=== PATIENT | male | born 1975 | race Two or more races ===

== ENCOUNTER 2024-07-05 01:24 | Emergency (ER) | payer OTHER ==
[~2024-07-05] VITALS: Ht 167.6 cm; Wt 70.0 kg
[2024-07-05] MEDS: NALOXONE HCL 1MG/ML 2ML SYRINGE ONE ×2 (01:37→01:43)
[2024-07-05] MEDS: NALOXONE HCL 1MG/ML 2ML SYRINGE IV ONE ×4 (01:44→01:55)
[2024-07-05 02:14] VITALS: PULSE 83; RESP 11; O2SAT 100
[2024-07-05 07:55] VITALS: PULSE 89; RESP 12; TEMP 98.2; O2SAT 99
[2024-07-05 09:17] VITALS: BP 120/78; PULSE 76; RESP 15; O2SAT 98
== END 2024-07-05 09:25 | disposition home or self-care (01) ==
LOC: EDBD 01:24 → ER 01:24
DX: T50.7X1A Poisoning by analeptics and opioid receptor antagonists, accidental (unintentional), initial encounter (principal); R41.82 Altered mental status, unspecified; F17.200 Nicotine dependence, unspecified, uncomplicated; Y92.9 Unspecified place or not applicable
CPT/HCPCS: 82962; 93005; 96374; 99291; J2310